=== PATIENT | male | born 1995 | race Caucasian/White ===

== ENCOUNTER 2020-12-31 21:30 | Observation (INO) | payer OTHER ==
[~2020-12-31] VITALS: Ht 160 cm; Wt 76.5 kg
[~2020-12-31 21:30] MED LIST: CEPH500 PO; CODACE30 PO; FAMO20 PO; OMEP40CA12 PO; PRED10 PO; RANI150 PO; RXCODACET PO; RXTRAM50 PO; SULTRIDS PO; TRAM50 PO; TYLENOL PRN
[2020-12-31 22:11] LABS: BASOPHILS ABSOLUTE AUTO 0.04 K/mm3 (0.00-0.23); BASOPHILS PERCENT AUTO 0 % (0-2); EOSINOPHILS ABSOLUTE AUTO 0.04 K/mm3 (0.00-0.68); EOSINOPHILS PERCENT AUTO 0 % (0-6); Hematocrit 49.8 % (37.0-53.0); Hemoglobin 17.1 g/dL (13.5-17.5); IMMATURE GRAN ABSOLUTE AUTO 0.04 K/mm3 (0.00-0.10); IMMATURE GRAN PERCENT AUTO 0 % (0-1); LYMPHOCYTES ABSOLUTE AUTO 1.23 K/mm3 (0.84-5.20); LYMPHOCYTES PERCENT AUTO 7 % (21-46); MONOCYTES PERCENT AUTO 8 % (4-13); Mean Corpuscular HGB 31.1 pg (26.0-34.0); Mean Corpuscular HGB Conc 34.3 g/dL (31.5-36.5); Mean Corpuscular Volume 91 fL (80-100); Mean Platelet Volume 9.8 fL (9.1-12.4); NEUTROPHILS PERCENT AUTO 84 % (41-73); Platelet Count 317 K/mm3 (150-400); RDW Coefficient Variation 12.6 % (11.7-14.2); RDW Standard Deviation 41.6 fL (35.1-46.3); White Blood Cell Count 16.75 K/mm3 (4.00-11.30)
[2020-12-31 22:30] LABS: Alanine Aminotransfer (ALT/SGP 46 U/L (12-78); Albumin, Blood 4.5 g/dL (3.4-5.0); Albumin/Globulin Ratio 1.1 (0.8-1.8); Alk Phos 85 U/L (50-136); Anion Gap 6 mmol/L (6-16); Aspartate Aminotrans (AST/SGOT 32 U/L (12-37); Bilirubin, Total 1.6 mg/dL (0.1-1.0); Blood Urea Nitrogen 18 mg/dL (8-24); Bun/Creatinine Ratio 16.5 (12.0-20.0); CO2, Blood 26 mmol/L (21-32); Calcium, Blood 9.3 mg/dL (8.5-10.1); Chloride, Blood 107 mmol/L (98-108); Creatinine, Blood 1.09 mg/dL (0.60-1.20); Glomerular Filtration Rate >60 (60-); Glucose, Blood 119 mg/dL (70-99); Potassium, Blood 4.1 mmol/L (3.5-5.5); Sodium, Blood 139 mmol/L (136-145); Total Protein, Blood 8.5 g/dL (6.4-8.2)
[2021-01-01 00:56] LABS: Source, Urine Clean Catch
[2021-01-01 00:59] LABS: Bilirubin, Urine Neg (Neg); Blood, Urine Neg (Neg); Glucose Qualitative, Urine 3+ (Neg); Ketones, Urine 1+ (Neg); Leukocyte Esterase, Urine Neg (Neg); Nitrite, Urine Neg (Neg); Protein, Urine 1+ (Neg); Specific Gravity, Urine 1.015 (1.003-1.022); Urobilinogen, Urine NORM (Normal)
[2021-01-01 01:38] LABS: Appearance, Urine Clear (Clear); Color, Urine Yellow (P-Yellow)
[2021-01-01 05:03] LABS: BASOPHILS ABSOLUTE AUTO 0.01 K/mm3 (0.00-0.23); BASOPHILS PERCENT AUTO 0 % (0-2); EOSINOPHILS ABSOLUTE AUTO 0.02 K/mm3 (0.00-0.68); EOSINOPHILS PERCENT AUTO 0 % (0-6); Hematocrit 43.3 % (37.0-53.0); Hemoglobin 14.8 g/dL (13.5-17.5); IMMATURE GRAN ABSOLUTE AUTO 0.03 K/mm3 (0.00-0.10); IMMATURE GRAN PERCENT AUTO 0 % (0-1); LYMPHOCYTES ABSOLUTE AUTO 0.72 K/mm3 (0.84-5.20); LYMPHOCYTES PERCENT AUTO 8 % (21-46); MONOCYTES ABSOLUTE AUTO 0.53 K/mm3 (0.16-1.47); MONOCYTES PERCENT AUTO 6 % (4-13); Mean Corpuscular HGB 30.9 pg (26.0-34.0); Mean Corpuscular HGB Conc 34.2 g/dL (31.5-36.5); Mean Corpuscular Volume 90 fL (80-100); Mean Platelet Volume 10.5 fL (9.1-12.4); NEUTROPHILS ABSOLUTE AUTO 7.51 K/mm3 (1.96-9.15); NEUTROPHILS PERCENT AUTO 85 % (41-73); Platelet Count 249 K/mm3 (150-400); RDW Coefficient Variation 12.7 % (11.7-14.2); RDW Standard Deviation 42.2 fL (35.1-46.3); Red Blood Cell Count 4.79 M/mm3 (4.30-5.90); White Blood Cell Count 8.82 K/mm3 (4.00-11.30)
[2021-01-01 05:35] LABS: Alanine Aminotransfer (ALT/SGP 33 U/L (12-78); Albumin, Blood 3.4 g/dL (3.4-5.0); Alk Phos 67 U/L (50-136); Anion Gap 4 mmol/L (6-16); Aspartate Aminotrans (AST/SGOT 22 U/L (12-37); Bilirubin, Total 1.7 mg/dL (0.1-1.0); Blood Urea Nitrogen 19 mg/dL (8-24); CO2, Blood 27 mmol/L (21-32); Calcium, Blood 7.9 mg/dL (8.5-10.1); Chloride, Blood 108 mmol/L (98-108); Globulin, Blood 3.5 g/dL (2.2-4.0); Glomerular Filtration Rate >60 (60-); Glucose, Blood 110 mg/dL (70-99); Sodium, Blood 139 mmol/L (136-145); Total Protein, Blood 6.9 g/dL (6.4-8.2)
[2021-01-01 05:48] LABS: CHOL/HDL RATIO 5.1; Cholesterol 178 mg/dL (50-200); HDL Cholesterol 35 mg/dL (>39); LDL/HDL RATIO 3.8; Low Density Lipoprotein Chol 131 mg/dL (0-110); Triglycerides 58 mg/dL (30-140); Very Low Density Lipoprot Chol 11 mg/dL (6-28)
--- NOTE | 2021-01-01 05:50 | NUR ---
PSYCHOLOGIST SOCIAL SUMMARY PT NEW ADMIT, ARRIVED TO UNIT AT 0235. A/O X4, INDEPENDENT IN ROOM. PT APPEARS TIRED AND HAS BEEN ASLEEP SINCE ADMISSION. PT DENIES PAIN AND NAUSEA. PT RECIEVED IV MORPHINE IN THE ER [facility]. INTRODUCED TO STAFF AND ROOM. NO SKIN ISSUES. ROOM AIR, SATTING IN THE HIGH 90'S. CALL LIGHT WITHIN REACH, WILL CONTINUE TO MONITOR.
--- NOTE | 2021-01-01 18:46 | NUR ---
END OF SHIFT SUMMARY/DISCHARGE AMA: AT 18:30 PATIENT REQUESTED TO SPEAK WITH THE RN. THE PATIENT REPORTED THAT HE FELT BETTER AND THAT HE WAS READY TO GO HOME. DISCUSSED WITH THE PATIENT WHAT IT MEANT TO LEAVE AMA. PATIENT REPORTED THAT HE WOULD LEAVE AMA IF NOT DISCHARGED. DISCUSSED WITH DR. TIWARI. DISCUSSED WITH THE PATIENT THAT IT WAS STRONGLY RECOMMENDED THAT HE STAY AT LEAST ONE MORE NIGHT. PATIENT REPORTED THAT HE STILL WOULD LIKE TO LEAVE. COMPLETED AMA PAPERWORK WITH THE PATIENT. PATIENT TOLERATED CLEAR LIQUIDS THIS AFTERNOON AND EVENING WITHOUT DIFFICULTY (NO NAUSEA, CRAMPING, OR INCREASE IN PAIN). PATIENT INDEPENDENT IN THE ROOM WITHOUT DIZZINESS OR INCREASE IN PAIN. PATIENT REPORTED THAT HE FEELS BETTER.
== END 2021-01-01 18:43 | disposition left against medical advice (07) ==
LOC: ER 21:30 → MEDS 21:31 → ER 01-01 01:00 → MEDS 01-01 02:33
PROVIDERS: Physician Assistant; ADMIT Internal Medicine
DX: K52.9 Noninfective gastroenteritis and colitis, unspecified (principal); K85.90 Acute pancreatitis without necrosis or infection, unspecified; E86.0 Dehydration
CPT/HCPCS: 36415; 74176; 80053; 80061; 83690; 83993; 85025; 85651; 86140; 96374; 96375; 99285-25; G0378; J1650; J2270; J2405; J7030

== ENCOUNTER 2022-08-30 22:45 | Emergency (ER) | payer OTHER ==
[~2022-08-30] VITALS: Ht 160 cm; Wt 81.7 kg
[2022-08-30 23:11] LABS: BASOPHILS ABSOLUTE AUTO 0.04 K/mm3 (0.00-0.23); BASOPHILS PERCENT AUTO 1 % (0-2); EOSINOPHILS ABSOLUTE AUTO 0.17 K/mm3 (0.00-0.68); EOSINOPHILS PERCENT AUTO 2 % (0-6); Hematocrit 46.3 % (37.0-53.0); Hemoglobin 15.9 g/dL (13.5-17.5); IMMATURE GRAN ABSOLUTE AUTO 0.02 K/mm3 (0.00-0.10); IMMATURE GRAN PERCENT AUTO 0 % (0-1); LYMPHOCYTES ABSOLUTE AUTO 2.29 K/mm3 (0.84-5.20); LYMPHOCYTES PERCENT AUTO 28 % (21-46); MONOCYTES ABSOLUTE AUTO 0.87 K/mm3 (0.16-1.47); MONOCYTES PERCENT AUTO 11 % (4-13); Mean Corpuscular HGB 31.4 pg (26.0-34.0); Mean Corpuscular HGB Conc 34.3 g/dL (31.5-36.5); Mean Corpuscular Volume 91 fL (80-100); Mean Platelet Volume 9.8 fL (9.1-12.4); NEUTROPHILS ABSOLUTE AUTO 4.81 K/mm3 (1.96-9.15); NEUTROPHILS PERCENT AUTO 59 % (41-73); Platelet Count 298 K/mm3 (150-400); RDW Coefficient Variation 12.9 % (11.7-14.2); RDW Standard Deviation 42.8 fL (35.1-46.3); Red Blood Cell Count 5.07 M/mm3 (4.30-5.90)
[2022-08-30 23:29] LABS: Source, Urine Clean Catch
[2022-08-30 23:30] LABS: Albumin, Blood 3.8 g/dL (3.4-5.0); Bilirubin, Total 0.8 mg/dL (0.1-1.0); Bun/Creatinine Ratio 18.1 (12.0-20.0); Calcium, Blood 8.8 mg/dL (8.5-10.1); Creatinine, Blood 1.05 mg/dL (0.60-1.20); Globulin, Blood 3.9 g/dL (2.2-4.0); Potassium, Blood 3.9 mmol/L (3.5-5.5); Total Protein, Blood 7.7 g/dL (6.4-8.2)
[2022-08-30 23:38] LABS: Appearance, Urine Clear (Clear); Bilirubin, Urine Neg (Neg); Blood, Urine Neg (Neg); Color, Urine Yellow (P-Yellow); Glucose Qualitative, Urine 3+ (Neg); Ketones, Urine Neg (Neg); Leukocyte Esterase, Urine Neg (Neg); Nitrite, Urine Neg (Neg); Protein, Urine Neg (Neg); Specific Gravity, Urine 1.015 (1.003-1.022); Urobilinogen, Urine 2+ (Normal)
[2022-08-31] MEDS ORDERED: ALMACONE SUSPE355 ML PO (00:24)
[2022-08-31] MEDS ORDERED: FAMO20 PO (00:24)
[2022-08-31] MEDS ORDERED: ONDA4ODT MM (00:24)
== END 2022-08-31 01:03 | disposition home or self-care (01) ==
LOC: ER 22:45
PROVIDERS: Student in an Organized Health Care Education/Training Program
DX: K29.70 Gastritis, unspecified, without bleeding (principal); F17.200 Nicotine dependence, unspecified, uncomplicated
CPT/HCPCS: 36415; 80053; 81003; 83690; 85025; 96374; 96375; 99284; A9270; J1790; J7120

== ENCOUNTER 2022-12-26 20:16 | Emergency (ER) | payer OTHER ==
[~2022-12-26] VITALS: Ht 160 cm; Wt 86.2 kg
[~2022-12-26 20:16] MED LIST changes: +ALMACONE SUSPE355 ML PO; +ONDA4ODT MM
[2022-12-26 20:49] VITALS: BP 148/93
== END 2022-12-26 21:41 | disposition home or self-care (01) ==
LOC: ER 20:16
DX: K02.9 Dental caries, unspecified (principal); F17.200 Nicotine dependence, unspecified, uncomplicated
CPT/HCPCS: 64400; 99282-25

== ENCOUNTER 2023-01-24 15:14 | Emergency (ER) | payer OTHER ==
[~2023-01-24] VITALS: Ht 160 cm; Wt 81.7 kg
[2023-01-24 15:32] VITALS: BP 117/82
[2023-01-24] MEDS ORDERED: HYDR1TAB94 PO ×3 (15:34→15:52)
[2023-01-24] MEDS ORDERED: Norco 5-325 Ta1 EACH PO (16:09)
== END 2023-01-24 15:34 | disposition home or self-care (01) ==
LOC: ER 15:14
DX: K04.7 Periapical abscess without sinus (principal); K02.9 Dental caries, unspecified; F17.200 Nicotine dependence, unspecified, uncomplicated
CPT/HCPCS: 99282

== ENCOUNTER 2023-02-07 20:37 | Emergency (ER) | payer OTHER ==
[~2023-02-07] VITALS: Ht 236.2 cm; Wt 81.7 kg
[~2023-02-07 20:37] MED LIST changes: +HYDR1TAB94 PO; +Norco 5-325 Ta1 EACH PO
[2023-02-07 21:19] VITALS: BP 119/84
[2023-02-07] MEDS ORDERED: AMOCLA875 PO (21:55)
== END 2023-02-07 21:58 | disposition home or self-care (01) ==
LOC: ER 20:37
DX: K02.9 Dental caries, unspecified (principal); K08.89 Other specified disorders of teeth and supporting structures; F17.220 Nicotine dependence, chewing tobacco, uncomplicated; F17.290 Nicotine dependence, other tobacco product, uncomplicated
CPT/HCPCS: 99282; A9270